=== PATIENT | male | born 1945 | race Two or more races ===

== ENCOUNTER 2021-03-27 07:27 | Day surgery (SDC) | payer MEDICARE ==
[2021-03-25 12:03] VITALS: BMI 28.0
[2021-03-27 09:23] LABS: Anion Gap 13 mmol/L (10-20); BUN (Urea Nitrogen) 15 mg/dL (8.4-25.7); Calc. Creatinine Clearance 78 mL/min (70-130); Calcium 9.8 mg/dL (7.8-10.44); Carbon Dioxide 31 mmol/L (23-31); Chloride 101 mmol/L (98-107); Glucose 104 mg/dL (83-110); Potassium 3.6 mmol/L (3.5-5.1); Sodium 141 mmol/L (136-145)
[2021-03-27] MEDS ORDERED: Bupivacaine PF 0.5% 30 ML VIAL ONE (09:56)
[2021-03-27] MEDS ORDERED: EPINEPHrine 1 MG/ML AMP ONE (09:56)
[2021-03-27] MEDS ORDERED: Fentanyl 250 MCG/5 ML VIAL ONE (10:24)
[2021-03-27] MEDS ORDERED: Rocuronium Bromide 10 MG/ML (10ML VIAL) ONE (10:33)
[2021-03-27] MEDS ORDERED: Glycopyrrolate 0.2 MG/ML 5 ML SYRINGE ONE (10:33)
[2021-03-27] MEDS ORDERED: PROPOFOL 200 MG/20 ML VIAL ONE (10:33)
[2021-03-27] MEDS ORDERED: Metoclopramide HCl 10 MG/2 ML VIAL ONE (10:33)
[2021-03-27] MEDS ORDERED: Ondansetron PF 4 MG/2 ML Vial ONE (10:33)
[2021-03-27] MEDS ORDERED: Lidocaine 1% PF 5 ML VIAL ONE (10:33)
[2021-03-27] MEDS ORDERED: Fentanyl 100 MCG/2 ML VIAL ONE ×3 (12:36→13:44)
[2021-03-27] MEDS ORDERED: Tamsulosin HCl 0.4 MG CAP ONE (12:51)
== END 2021-03-27 15:30 | disposition home or self-care (01) ==
LOC: SDC 07:27
PROVIDERS: ATTEND Neurological Surgery
PROC: 01NB0ZZ Release Lumbar Nerve, Open Approach (ICD-10-PCS; principal; 2021-03-27)
DX: M48.062 Spinal stenosis, lumbar region with neurogenic claudication (principal); M54.16 Radiculopathy, lumbar region; G89.29 Other chronic pain; E78.00 Pure hypercholesterolemia, unspecified; M81.0 Age-related osteoporosis without current pathological fracture; E11.9 Type 2 diabetes mellitus without complications; M19.90 Unspecified osteoarthritis, unspecified site; Z79.84 Long term (current) use of oral hypoglycemic drugs; Z79.899 Other long term (current) drug therapy; Z88.8 Allergy status to other drugs, medicaments and biological substances
CPT/HCPCS: 36415; 76000; 80048; 93005; 93010; J0171; J0690; J2405; J2704; J2765; J3010; S0020